=== PATIENT | male | born 1960 | race African-American/Black ===

== ENCOUNTER 2017-08-31 18:49 | Emergency (ER) | payer MEDICAID ==
[~2017-08-31] VITALS: Ht 182.9 cm; Wt 92.0 kg
[2017-08-31] MEDS ORDERED: SODIUM CHLORIDE 0.9% 1,000 ML IV ONE (21:58)
[2017-08-31] MEDS ORDERED: MECLIZINE 25MG TABLET PO ONE (22:00)
[2017-08-31 22:13] LABS: CLARITY URINE CLEAR (CLEAR); COLOR URINE YELLOW (YELLOW); GLUCOSE URINE NEGATIVE (NEGATIVE); KETONES URINE NEGATIVE (NEGATIVE); LEUKOCYTE ESTERASE URINE NEGATIVE (NEGATIVE); NITRITE URINE NEGATIVE (NEGATIVE); OCCULT BLOOD URINE NEGATIVE (NEGATIVE); PROTEIN URINE NEGATIVE (NEGATIVE); SPECIFIC GRAVITY URINE 1.006 (1.005-1.030)
[2017-08-31 22:38] LABS: BASOPHILS % 0.1 % (0.0-2.0); HEMOGLOBIN. 16.1 g/dL (14.0-18.0); LYMPHOCYTES % 20.4 % (20.0-50.0); MEAN CORPUSCULAR HEMOGLOBIN 30.3 pg (28.0-32.0); MEAN CORPUSCULAR VOLUME 86.6 fL (80.0-94.0); MEAN PLATELET VOLUME 9.7 fl (7.4-10.4); MONOCYTES % 7.8 % (2.0-8.0); NEUTROPHILS % 71.7 % (40.0-76.0); PLATELET 208 x1000/uL (130-400); RED BLOOD CELL COUNT 5.31 mill/uL (4.7-6.1); RED CELL DISTRIBUTION WIDTH 14.6 % (11.6-14.6)
[2017-08-31 22:46] LABS: INR 1.2; PROTHROMBIN TIME 12.4 sec (9.4-11.6)
[2017-08-31 23:43] LABS: CARBON DIOXIDE 31 mEq/L (21-32); CHLORIDE 96 mEq/L (98-107); TROPONIN I < 0.02 ng/mL (0.00-0.04)
[2017-09-01] MEDS ORDERED: NIMODIPINE 30MG CAPSULE PO ONE (01:15)
[2017-09-01] MEDS ORDERED: IOHEXOL-350 100 ML BOTTLE ONE (01:20)
[2017-09-01 02:59] VITALS: BP 143/64
== END 2017-09-01 03:13 | disposition short-term general hospital (02) ==
LOC: ER 19:01
DX: I60.9 Nontraumatic subarachnoid hemorrhage, unspecified (principal)
CPT/HCPCS: 36415; 70450; 70496; 70498; 71010; 80053; 81003; 83880; 84484; 85025; 85610; 93005; 96360; 96361; 99291; J7030; Q9967; Z7610; J8597